=== PATIENT | female | born 1990 | race Caucasian/White ===

== ENCOUNTER 2016-12-10 16:20 | Emergency (ER) | payer SELFPAY ==
[2016-12-10] MEDS ORDERED: METHYLPREDNISOLONE PF 125MG/VIAL IM ONE (16:48)
--- NOTE | 2016-12-10 16:53 | Emergency Department Record ---
History of Present Illness - General Chief complaint: Extremity Problem Stated complaint: LT HAND BLISTERS/SWOLLEN Time Seen by Provider: 12/10/16 16:44 Source: Patient Mode of Arrival: Ambulatory Limitations: No limitations - History of Present Illness Initial comments: The patient has a hx of excema and now her L hand has become very inflamed with blisters and swelling. She is having mild pain due to the blisters and edema. She denies any trauma or injury. The patient has had a similar issue in the past and was here in the ER and receive a steroid shot and ointment. MD Complaint: Extremity pain Onset/Timin -: Week(s) Location: Left, Hand History of Same: No Radiation: Distal Severity scale (1-10): 6 Quality: Burning, Other Consistency: Constant Improves with: Nothing Worsens with: Nothing Associated Symptoms: Denies other symptoms - Related Data Previous Rx's Medication Instructions Recorded Prednisone [Prednisone 20Mg] 20 mg PO ASDIR #15 tab 12/10/16 Triamcinolone Acetonide 15 gm TP BID #30 cream..g. 12/10/16 Allergies Allergy/AdvReac Type Severity Reaction Status Date / Time latex Allergy HIVES Verified 12/10/16 16:41 Travel Screening - Travel/Exposure Within Last 30 Days Have you traveled within the last 30 days?: No Review of Systems Constitutional: Denies: Chills, Fever Eyes: Denies: Eye discharge ENT: Denies: Congestion Respiratory: Denies: Cough, Dyspnea Past Medical History - SOCIAL HISTORY Smoking Status: Never smoker Alcohol Use: None Drug Use: None - RESPIRATORY Hx Respiratory Disorders: No - CARDIOVASCULAR Hx Cardio Disorders: No - NEURO Hx Neuro Disorders: No - GI Hx GI Disorders: No - Hx Genitourinary Disorders: No - ENDOCRINE Hx Endocrine Disorders: No - MUSCULOSKELETAL Hx Musculoskeletal Disorders: No - PSYCH Hx Psych Problems: No - HEMATOLOGY/ONCOLOGY Hx Hematology/Oncology Disorders: No Family Medical History Any Significant Family History?: Yes Hx Diabetes: Father Hx HTN: Mother Physical Exam - General General Appearance: Alert, Oriented x3, Cooperative, No acute distress - Head Head exam: Atraumatic, Normocephalic, Normal inspection - Eye Eye exam: Normal appearance, PERRL - Extremities Extremities exam: Full ROM (There is decreased finger ROM due to mild edema.). negative: Normal inspection (There is mild edema to the fingers with scattered erythematous blisters. There are also chronic changes due to excema to the hands.), Joint swelling, Pedal edema - Neurological Neurological exam: Alert, Normal gait. negative: Abnormal gait, Motor sensory deficit Course Vital Signs 12/10/16 16:36 Temperature 98.4 F Pulse Rate 88 Respiratory 20 Rate Blood Pressure 131/80 Pulse Ox 98 - Reevaluation(s) Reevaluation #1: I did discuss the issues with the patient. We will treat her with oral and topical steroids due to the excema. We will refer her to her PCP for chronic therapy and treatment. 12/10/16 16:56 Disposition Disposition: Discharge Clinical Impression: Dermatitis Disposition: Home, Self-Care Condition: (1) Good Instructions: Eczema (ED) Additional Instructions: Please start the Prednisone tomorrow and use the cream as directed. Please see your PCP for recheck next week. Return to the ER if worse. Prescriptions: Prednisone [Prednisone 20Mg] 20 mg PO ASDIR #15 tab Triamcinolone Acetonide 15 gm TP BID #30 cream..g. Forms: Patient Portal Access Time of Disposition: 16:52
== END 2016-12-10 17:23 | disposition home or self-care (01) ==
LOC: ER 16:20
DX: L30.9 Dermatitis, unspecified (principal); M79.642 Pain in left hand
CPT/HCPCS: 96372; 99283; J2930